=== PATIENT | female | born 1970 | race Caucasian/White ===

== ENCOUNTER 2017-01-10 14:23 | Emergency (ER) | payer OTHER ==
--- NOTE | 2017-01-10 15:23 | DIAGNOSTIC IMAGING REPORT ---
PROCEDURE: XR WRIST MIN 3 VIEWS - RIGHT INDICATION: TRAUMA/INJURY TECHNIQUE: Four views of the right wrist. COMPARISON: None. FINDINGS: Normal mineralization. No fractures. Normal osseous alignment. No suspicious soft-tissue calcification or radiodense foreign bodies. IMPRESSION: 1. Intact right wrist.
--- NOTE | 2017-01-10 15:26 | ED ORDER SUMMARY ---
..... Patient: SVETLANA BENTON OrderSheet [facility] VisitID: [id number] [address] [place] [address] 46y, F Registration Date/Time: 01/10/2017 ORDER SHEET Weight: 73.4 kg (stated) Allergies: Codeine, Gabapentin, Morphine and Related, Penicillins GENERAL ORDERS: Wrist 3 or 4V Right Urgent (14:36 01/10/2017 Luz Maria GomezAMarielyC) ([facility] 14:37 Harshal) (14:55 DDean R.N.) Splint (UE) (Right) (wrist velcro , r) (15:25 01/10/2017 Luz Maria Guerrero) (15:30 DDean R.N.) MEDICATION ORDERS: IV FLUIDS: ORDER SHEET NOTES: [Electronically signed by Carolin Ray P.A.-C (16:10 01/10/2017)] [Electronically signed by Beatriz Wagner R.N. (22:45 01/10/2017)] [Electronically locked/signed by Beatriz Wagner R.N. (22:45 01/10/2017)]
--- NOTE | 2017-01-10 15:26 | ED CLINICAL REPORT ---
Clinical Report - Physicians/Mid Levels [facility] [address] [place] [address] 01/10/2017 14:24 Patient: SVETLANA BENTON Time Seen: 16:08 Jan 10 2017. Arrived- By private vehicle. Historian- patient. HISTORY OF PRESENT ILLNESS Chief Complaint: Injury to the right hand. The injury happened just prior to arrival today 2 weeks FRONT OFFICE SPEC. Patient is experiencing mild pain. Patient denies injury to the head or neck. ( The patient presents with right wrist and hand pain for 2 weeks after a hyper extension of her right index finger. Denies direct trauma. No h/o gout. Has been using vicodin for chornic pain. NO h/o gout/ pseudogout.). REVIEW OF SYSTEMS All systems otherwise negative, except as recorded above. PAST HISTORY The patient's dominant hand is the right. She has not had a prior injury to the same area. Tetanus immunization status is up-to-date. SOCIAL HISTORY Smoker- current status unknown. No alcohol use or drug use. ADDITIONAL NOTES The nursing notes have been reviewed. PHYSICAL EXAM Vital Signs: 01/10/2017 14:30 BP: 128/80. HR: 78. RR: 18. O2 saturation: 98%. Temp: 98.2 F. Appearance: Alert. Head: Head atraumatic. CVS: Normal heart rate and rhythm. Heart sounds normal. Respiratory: No respiratory distress. Breath sounds normal. Skin: Skin warm. Skin intact. Extremities: Anatomic snuffbox, right arm: No tenderness or swelling. Right distal radius. No tenderness or swelling. Dorsal right hand: mild tenderness. Limited extension of the index and middle finger. No swelling, abrasion, foreign body or deformity. Right thumb. Soft tissue tenderness present. No bony tenderness. No signs of infection present. Neuro, Vascular and Tendons: Vascular status intact. Motor intact. Neuro: Oriented X 3. LABS, X-RAYS, AND EKG Rt Wrist X-ray: (IMPRESSION: 1. Intact right wrist. Electronically Final signed by:John Munson MD 01/10/2017 3:23:44 PM). PROGRESS AND PROCEDURES PROCEDURES (r. wrist velcro splint: ns intact). Course of Care: patient with no signs of gout, no signs of injury. No signs of infectious process. Extension of the digits is with some pain. Patient is stable. Patient/family counseled. Disposition: Discharged. Condition: good. CLINICAL IMPRESSION Sprain of the radial collateral ligament of the right elbow. Acute inflammatory tendonitis in the right wrist and hand. INSTRUCTIONS Apply ice. Elevate affected areas above chest level. Limit use of your hand. Prescription Medications: Ibuprofen 800 mg tablets: take 1 tablet orally every 8 hours for 5 days, as needed for pain. Dispense twenty (20). No refill. Medrol Dosepak: take according to package directions. Dispense one (1) dosepak. No refills. Substitution is permissible. [facility]-up with: [facility], , [address], [facility], [address] Follow up. Call for the next available appointment. (Electronically signed by Carolin Ray P.A.-C 01/10/2017 16:10)
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
--- NOTE | 2017-01-10 15:26 | ED CLINICAL REPORT ---
Clinical Report - Physicians/Mid Levels [facility] [address] [place] [address] 01/10/2017 14:24 Patient: SVETLANA BENTON Time Seen: 16:08 Jan 10 2017. Arrived- By private vehicle. Historian- patient. HISTORY OF PRESENT ILLNESS Chief Complaint: Injury to the right hand. 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 Patient is experiencing mild pain. Patient denies injury to the head or neck. ( The patient presents with right wrist and hand pain for 2 weeks after a hyper extension of her right index finger. Denies direct trauma. No h/o gout. Has been using vicodin for chornic pain. NO h/o gout/ pseudogout.). REVIEW OF SYSTEMS All systems otherwise negative, except as recorded above. PAST HISTORY The patient's dominant hand is the right. She has not had a prior injury to the same area. Tetanus immunization status is up-to-date. SOCIAL HISTORY Smoker- current status unknown. No alcohol use or drug use. ADDITIONAL NOTES The nursing notes have been reviewed. PHYSICAL EXAM Vital Signs: 01/10/2017 14:30 BP: 128/80. HR: 78. RR: 18. O2 saturation: 98%. Temp: 98.2 F. Appearance: Alert. Head: Head atraumatic. CVS: Normal heart rate and rhythm. Heart sounds normal. Respiratory: No respiratory distress. Breath sounds normal. Skin: Skin warm. Skin intact. Extremities: Anatomic snuffbox, right arm: No tenderness or swelling. Right distal radius. No tenderness or swelling. Dorsal right hand: mild tenderness. Limited extension of the index and middle finger. No swelling, abrasion, foreign body or deformity. Right thumb. Soft tissue tenderness present. No bony tenderness. No signs of infection present. Neuro, Vascular and Tendons: Vascular status intact. Motor intact. Neuro: Oriented X 3. LABS, X-RAYS, AND EKG Rt Wrist X-ray: (IMPRESSION: 1. Intact right wrist. Electronically Final signed by:John Munson MD 01/10/2017 3:23:44 PM). PROGRESS AND PROCEDURES PROCEDURES (r. wrist velcro splint: ns intact). Course of Care: patient with no signs of gout, no signs of injury. No signs of infectious process. Extension of the digits is with some pain. Patient is stable. Patient/family counseled. Disposition: Discharged. Condition: good. CLINICAL IMPRESSION Sprain of the radial collateral ligament of the right elbow. Acute inflammatory tendonitis in the right wrist and hand. INSTRUCTIONS Apply ice. Elevate affected areas above chest level. Limit use of your hand. Prescription Medications: Ibuprofen 800 mg tablets: take 1 tablet orally every 8 hours for 5 days, as needed for pain. Dispense twenty (20). No refill. Medrol Dosepak: take according to package directions. Dispense one (1) dosepak. No refills. Substitution is permissible. Follow-up with: [facility], , [address], [facility], [address] Follow up. Call for the next available appointment. (Electronically signed by Carolin Ray P.A.-C 01/10/2017 16:10)
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
--- NOTE | 2017-01-10 15:26 | ED ORDER SUMMARY ---
..... Patient: SVETLANA BENTON OrderSheet [facility] VisitID: [id number] [address] [place] [address] 46y, F Registration Date/Time: 01/10/2017 ORDER SHEET Weight: 73.4 kg (stated) Allergies: Codeine, Gabapentin, Morphine and Related, Penicillins GENERAL ORDERS: Wrist 3 or 4V Right Urgent (14:36 01/10/2017 Luz Maria GomezAMarielyC) ([facility] 14:37 Harshal) (14:55 DDean R.N.) Splint (UE) (Right) (wrist velcro , r) (15:25 01/10/2017 Luz Maria Guerrero) (15:30 DDean R.N.) MEDICATION ORDERS: IV FLUIDS: ORDER SHEET NOTES: [Electronically signed by Carolin Ray P.A.-C (16:10 01/10/2017)] [Electronically signed by Beatriz Wagner R.N. (22:45 01/10/2017)] [Electronically locked/signed by Beatriz Wagner R.N. (22:45 01/10/2017)]
--- NOTE | 2017-01-10 22:46 | ED MAR SUMMARY ---
..... Medication Administration Record [facility] [address], [place] [id number] Patient: SVETLANA BENTON Visit ID: [id number] 46y, F Weight: 73.4 kg Height/Length: 63.5 in BMI: 28.2 ALLERGIES: Penicillins, Morphine and Related, Codeine, Gabapentin
--- NOTE | 2017-01-10 22:46 | ED MED RECONCILIATION SUMMARY ---
Patient: SVETLANA BENTON Medication Reconciliation Report [facility] VisitID: [id number] [address] [place] [address] 46y, F Registration Date/Time: 01/10/2017 Weight: 73.4 kg Height/Length: (not available) BMI: 28.2 ALLERGIES: Codeine, Gabapentin, Morphine and Related, Penicillins The patient's Home Medications are listed below: THE FOLLOWING MEDICATIONS NEED TO BE RECONCILED: Ambien Oral 10 mg, at bedtime Hydrocodone-Acetaminophen Oral 10 mg, 3x a day, last dose: 1400 Ibuprofen Oral 400 mg, PRN, last dose: 2200 Methocarbamol Oral 500 mg, 3x a day Protonix Oral 40 mg, at bedtime Xanax Oral 1 mg, 3x a day The source(s) of the original Home Medication information: Not obtained. The following Medications were given to the patient in the Emergency Department: None. The following Medications were prescribed to the patient: Ibuprofen 800 mg tablets: take 1 tablet orally every 8 hours for 5 days, as needed for pain. Dispense twenty (20). No refill. -- Carolin Ray, P.A.-C Medrol Dosepak: take according to package directions. Dispense one (1) dosepak. No refills. Substitution is permissible. -- Carolin Ray, P.A.-C
--- NOTE | 2017-01-10 22:46 | ED DISCHARGE INSTRUCTIONS ---
Patient: SVETLANA BENTON General Instructions [facility] VisitID: [id number] [address] [place], [place] [id number] 46y, F Registration Date/Time: 01/10/2017 Sprain of the radial collateral ligament of the right elbow. Acute inflammatory tendonitis in the right wrist and hand. INSTRUCTIONS Apply ice. Elevate affected areas above chest level. Limit use of your hand. Prescription Medications: Ibuprofen 800 mg tablets: take 1 tablet orally every 8 hours for 5 days, as needed for pain. Dispense twenty (20). No refill. Medrol Dosepak: take according to package directions. Dispense one (1) dosepak. No refills. Substitution is permissible. Follow-up with: [facility], , [address] [place], [address] Follow up. Call for the next available appointment. ADDITIONAL INFORMATION Tendonitis A tendon is the thick fibrous cord that joins muscle to bone and causes joints to move. Tendonitis is inflammation of the tendon which may be due to overuse, injury or infection. This usually involves the shoulders, forearm, wrist, hands and foot. Symptoms include local pain, swelling and tenderness to the touch. Movement of the involved joint increases the pain. Tendonitis requires about 4 to 6 weeks to heal. It is treated by preventing motion of the tendon with a splint or brace and use of anti-inflammatory medicine. Home Care: Apply an ice pack (ice cubes in a plastic bag, wrapped in a towel) over the injured area for 20 minutes every 1-2 hours the first day for pain relief. Continue this 3-4 times a day until the pain and swelling goes away. Rest the inflamed joint and protect it from movement. You may use ibuprofen (Motrin, Advil) or naproxen (Aleve, Naprosyn) to treat pain and inflammation, unless another medicine was prescribed. If you can't take these medicines, acetaminophen (Tylenol) may help with the pain, but does not treat inflammation. [NOTE : If you have chronic liver or kidney disease or ever had a stomach ulcer or GI bleeding, talk with your doctor before using these medicines.] As your symptoms improve, begin gradual motion at the involved joint. Follow Up With Your Doctor If Not Improving After The First Five Days Of Treatment. Get Prompt Medical Attention If Any Of The Following Occur: Redness over the painful area Increasing pain or swelling at the joint Fever of 100.4F (38C) or higher, or as directed by your healthcare provider You have been given the following additional information: Tendonitis Limit use of your hand. (Electronically signed by Carolin Ray P.A.-C 01/10/2017 16:10)
--- NOTE | 2017-01-10 22:46 | ED MED RECONCILIATION SUMMARY ---
Patient: SVETLANA BENTON Medication Reconciliation Report [facility] VisitID: [id number] [address] [place] [address] 46y, F Registration Date/Time: 01/10/2017 Weight: 73.4 kg Height/Length: (not available) BMI: 28.2 ALLERGIES: Codeine, Gabapentin, Morphine and Related, Penicillins The patient's Home Medications are listed below: THE FOLLOWING MEDICATIONS NEED TO BE RECONCILED: Ambien Oral 10 mg, at bedtime Hydrocodone-Acetaminophen Oral 10 mg, 3x a day, last dose: 1400 Ibuprofen Oral 400 mg, PRN, last dose: 2200 Methocarbamol Oral 500 mg, 3x a day Protonix Oral 40 mg, at bedtime Xanax Oral 1 mg, 3x a day The source(s) of the original Home Medication information: Not obtained. The following Medications were given to the patient in the Emergency Department: None. The following Medications were prescribed to the patient: Ibuprofen 800 mg tablets: take 1 tablet orally every 8 hours for 5 days, as needed for pain. Dispense twenty (20). No refill. -- Carolin Ray, P.A.-C Medrol Dosepak: take according to package directions. Dispense one (1) dosepak. No refills. Substitution is permissible. -- Carolin Ray, P.A.-C
--- NOTE | 2017-01-10 22:46 | ED MAR SUMMARY ---
..... Medication Administration Record [facility] [address] [place], [place] [id number] Patient: SVETLANA BENTON Visit ID: [id number] 46y, F Weight: 73.4 kg Height/Length: 63.5 in BMI: 28.2 ALLERGIES: Penicillins, Morphine and Related, Codeine, Gabapentin
--- NOTE | 2017-01-10 22:46 | ED DISCHARGE INSTRUCTIONS ---
Patient: SVETLANA BENTON General Instructions [facility] VisitID: [id number] [address] [place], [place] [id number] 46y, F Registration Date/Time: 01/10/2017 Sprain of the radial collateral ligament of the right elbow. Acute inflammatory tendonitis in the right wrist and hand. INSTRUCTIONS Apply ice. Elevate affected areas above chest level. Limit use of your hand. Prescription Medications: Ibuprofen 800 mg tablets: take 1 tablet orally every 8 hours for 5 days, as needed for pain. Dispense twenty (20). No refill. Medrol Dosepak: take according to package directions. Dispense one (1) dosepak. No refills. Substitution is permissible. Follow-up with: [facility], , [address] [place], [address] Follow up. Call for the next available appointment. ADDITIONAL INFORMATION Tendonitis A tendon is the thick fibrous cord that joins muscle to bone and causes joints to move. Tendonitis is inflammation of the tendon which may be due to overuse, injury or infection. This usually involves the shoulders, forearm, wrist, hands and foot. Symptoms include local pain, swelling and tenderness to the touch. Movement of the involved joint increases the pain. Tendonitis requires about 4 to 6 weeks to heal. It is treated by preventing motion of the tendon with a splint or brace and use of anti-inflammatory medicine. Home Care: Apply an ice pack (ice cubes in a plastic bag, wrapped in a towel) over the injured area for 20 minutes every 1-2 hours the first day for pain relief. Continue this 3-4 times a day until the pain and swelling goes away. Rest the inflamed joint and protect it from movement. You may use ibuprofen (Motrin, Advil) or naproxen (Aleve, Naprosyn) to treat pain and inflammation, unless another medicine was prescribed. If you can't take these medicines, acetaminophen (Tylenol) may help with the pain, but does not treat inflammation. [NOTE : If you have chronic liver or kidney disease or ever had a stomach ulcer or GI bleeding, talk with your doctor before using these medicines.] As your symptoms improve, begin gradual motion at the involved joint. Follow Up With Your Doctor If Not Improving After The First Five Days Of Treatment. Get Prompt Medical Attention If Any Of The Following Occur: Redness over the painful area Increasing pain or swelling at the joint Fever of 100.4F (38C) or higher, or as directed by your healthcare provider You have been given the following additional information: Tendonitis Limit use of your hand. (Electronically signed by Carolin Ray P.A.-C 01/10/2017 16:10)
== END 2017-01-10 15:30 | disposition home or self-care (01) ==
LOC: ED SRH 14:23
DX: S53.432A Radial collateral ligament sprain of left elbow, initial encounter (principal); M65.241 Calcific tendinitis, right hand; W23.1XXA Caught, crushed, jammed, or pinched between stationary objects, initial encounter; Y93.9 Activity, unspecified; Y92.9 Unspecified place or not applicable; Y99.9 Unspecified external cause status; F17.210 Nicotine dependence, cigarettes, uncomplicated; Z88.0 Allergy status to penicillin; Z88.5 Allergy status to narcotic agent